=== PATIENT | male | born 1980 | race Asian ===

== ENCOUNTER 2018-06-25 20:23 | Emergency (ER) | payer OTHER, SELFPAY ==
[2018-06-25 20:28] VITALS: BP 125/79; PULSE 80; RESP 14; TEMP 36.4; O2SAT 100
[2018-06-25 22:00] VITALS: BP 129/74; PULSE 94; RESP 16; O2SAT 100
[2018-06-25 23:07] VITALS: BP 117/73; PULSE 92; RESP 17; O2SAT 100
[2018-06-26] VITALS: BP 119/66; PULSE 93; RESP 21; O2SAT 100
--- NOTE | 2018-06-26 00:23 | ED_ITS ---
HPI - Extremity Problem General Chief complaint: Extremity Problem,Nontraumatic Stated complaint: CHEST PAIN NUMBNESS OF LEFT ARM Time Seen by Provider: 06/26/18 00:23 Source: patient Mode of arrival: ambulatory Limitations: no limitations History of Present Illness HPI Narrative: The patient complains of left upper lateral chest pain for 2 days. He has increased discomfort with breathing, and moving. Pain resolved with rest. The pain does not radiate to his back or shoulder. 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 He can remember no trauma. He has no cardiac problems. He has no respiratory problems. He has no difficulty breathing. He was seen at a different, nearby, ER about 4 days ago and started on cyclobenzaprine for lumbar spasm. He has no back pain now. Related Data Home Medications Medication Instructions Recorded Confirmed cyclobenzaprine 10 mg PO TID PRN 06/25/18 06/25/18 Allergies Allergy/AdvReac Type Severity Reaction Status Date / Time No Known Drug Allergies Allergy Verified 06/25/18 20:34 Review of Systems Review of Systems ROS Unobtainable: All systems reviewed & are unremarkable except as noted in HPI and below Constitutional Denies fever(s), Denies lethargy and Denies weakness ENT Ears, Nose, Mouth, and Throat: Denies change in voice Cardiovascular Reports chest pain, Denies diaphoresis, Denies rapid heart rate, Denies pedal edema, Denies lightheadedness, Denies palpitations, Denies dyspnea, Denies dyspnea on exertion and Denies orthopnea Respiratory Denies cough, Denies hemoptysis, Denies pain with cough, Denies dyspnea, Denies dyspnea on exertion and Denies wheezing Gastrointestinal Gastrointestinal: Denies abdominal pain, Denies nausea and Denies vomiting Musculoskeletal Comments: No lower extremity edema. Integumentary/Breasts Denies rash Neurologic Denies weakness Endocrine Denies palpitations Allergic/Immunologic Denies wheezing [facility] Medical History (Updated 06/26/18 @ 00:37 by Deep Huertas MD) No active medical problems (Acute) Surgical History (Updated 06/26/18 @ 00:33 by Deep Huertas MD) No pertinent past surgical history (Acute) Social History Smoking Status: Current every day smoker Social History Smoking Status: Current every day smoker Exam Initial Vital Signs Initial Vital Signs: Vital Signs Temperature 97.6 F 06/25/18 20:28 Pulse Rate 80 06/25/18 20:28 Respiratory Rate 14 06/25/18 20:28 Blood Pressure 125/79 06/25/18 20:28 Pulse Oximetry 100 06/25/18 20:28 Const General: cooperative and well developed Nutritional Appearance: well nourished Orientation: alert, awake, oriented x3 and not confused Neck Neck: normal visual inspection, trachea midline and No JVD Lymphatic: No lymphedema Chest Chest: No crepitus and tenderness (Left pectoralis major muscle) Resp Effort & Inspection: normal respiratory effort, able to speak in complete sentences, no respiratory distress and no use of accessory muscles Auscultation: clear to auscultation bilaterally, no rales, no rhonchi and no wheezes Cardio Rate: regular rate Rhythm: regular rhythm Heart Sounds: no click, no gallops, no murmurs and no rubs Pulses: normal peripheral pulses GI Palpation: soft and No tender Back/Spine/Pelvis Back: normal to inspection Cervical Spine: normal cervical lordosis, cervical ROM normal and No cervical spasm Thoracic/Lumbar Spine: thoracic and lumbar spine normal to inspection and No thoracic spinal tenderness Skin General: no rashes or lesions noted Neuro General: alert, oriented x3, gait normal and no focal motor deficits Speech: speech normal Extrem General: full ROM and no clubbing, cyanosis or edema Course Course Narrative: The patient was started on ibuprofen for a left chest wall muscle strain. He is advised used Advil OTC, recheck with his doctor in 1 week if not improved. Vital Signs - 8 hr 06/25/18 20:28 06/25/18 22:00 06/25/18 23:07 Temperature 97.6 F Pulse Rate 80 94 H 92 H Respiratory Rate 14 16 17 Blood Pressure 125/79 Blood Pressure [Right Arm] 129/74 117/73 Pulse Oximetry 100 100 100 06/26/18 00:00 Temperature Pulse Rate 93 H Respiratory Rate 21 Blood Pressure Blood Pressure [Right Arm] 119/66 Pulse Oximetry 100 MDM - Extremity (Nontraumatic) ECG Data Attestation EKG: I personally reviewed and interpreted this ECG as follows: (Normal sinus rhythm rate 88 beats per minute. normal intervals. No ectopy. No acute ST T wave changes.) Discharge Plan Departure Patient Disposition: Home Clinical Impression: Chest wall muscle strain Qualifiers: Encounter type: initial encounter Qualified Code(s): S29.011A - Strain of muscle and tendon of front wall of thorax, initial encounter Instructions: DI for Muscle Strain Activity Restrictions/Additional Instructions: Advil 3 tablets every 6 hours as needed for pain. Recheck with her doctor in 1 week if not improved. Return to the ER if obviously worse. Prescriptions: No Action cyclobenzaprine 10 mg tablet 10 mg PO TID PRN (Reason: Back Pain) RF: 0
[2018-06-26] MEDS: IBUPROFEN 400 MG TABLET PO (00:41)
[2018-06-26 00:46] VITALS: BP 131/74; PULSE 97; RESP 18; O2SAT 100
== END 2018-06-26 00:47 | disposition home or self-care (01) ==
PROVIDERS: Emergency Provider Emergency Medicine
DX: S29.011A Strain of muscle and tendon of front wall of thorax, initial encounter (principal); R20.0 Anesthesia of skin; R07.89 Other chest pain
CPT/HCPCS: 93005; 93010; 99283

== ENCOUNTER 2018-07-26 03:20 | Emergency (ER) | payer OTHER, SELFPAY ==
[2018-07-26 03:31] VITALS: BP 141/97; PULSE 81; RESP 14; TEMP 37.2; O2SAT 96; BMI 29.9
[2018-07-26] MEDS: TET,DIPH,PERTUSS(ACELL),VAC/PF 0.5 ML SYRINGE IM (03:57)
--- NOTE | 2018-07-26 04:16 | ED.WOUNDLAC ---
HPI - Wound/Laceration General Chief Complaint: Wound/Laceration Stated Complaint: cut finger Time Seen by Provider: 07/26/18 04:16 Source: patient Mode of arrival: ambulatory Limitations: no limitations History of Present Illness HPI narrative: The patient lacerated his right thumb at work tonight. 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 He is dropping the left that helps moved meet at the work site. His right thumb was caught on a machine as a moved. He sustained a laceration to the tip of the right index finger. Initial active bleeding has ceased. He has no restriction of motion of the thumb. There are no other injuries. He is right-hand dominant. His last tetanus is unknown. Related Data Home Medications Medication Instructions Recorded Confirmed cyclobenzaprine 10 mg PO TID PRN 06/25/18 06/25/18 Allergies Allergy/AdvReac Type Severity Reaction Status Date / Time No Known Drug Allergies Allergy Verified 06/25/18 20:34 Review of Systems Constitutional Denies fever(s) and Denies weakness Comments: Generally good health. Musculoskeletal Reports as per HPI and Denies numbness Comments: Right thumb laceration Integumentary/Breasts Denies pruritus, Denies erythema, Denies rash and Denies wounds Neurologic Denies numbness and Denies weakness PFSH Medical History No active medical problems (Acute) Surgical History No pertinent past surgical history (Acute) Social History Smoking Status: Former smoker Social History Smoking Status: Former smoker Exam Initial Vital Signs Initial Vital Signs: Vital Signs Temperature 98.9 F 07/26/18 03:31 Pulse Rate 81 07/26/18 03:31 Respiratory Rate 14 07/26/18 03:31 Blood Pressure 141/97 H 07/26/18 03:31 Pulse Oximetry 96 07/26/18 03:31 Const General: cooperative and well developed Nutritional Appearance: well nourished Orientation: alert, awake and oriented x3 Skin General: no rashes or lesions noted, No jaundice and No petechiae Neuro Motor: muscle tone normal throughout Sensory Exam: no sensory deficits noted Extrem Other: Linear 0.5 cm laceration at the tip of the right thumb, on the medial side. There is no injury to the nail bed. The laceration is shallow, wound edges are well approximated. The finger is neurovascular intact. Course Course Narrative: The right thumb was cleansed and dressed by the patient's nurse, no closure was necessary. Tetanus was updated. Orders Ordered: Discontinued Medications Diphtheria/Tetanus/Acell Pertussis (Adacel) 0.5 ml IM .ONCE ONE Stop: 07/26/18 03:56 Last Admin: 07/26/18 03:57 Dose: 0.5 ml Vital Signs - 8 hr 07/26/18 03:31 Temperature 98.9 F Pulse Rate 81 Respiratory Rate 14 Blood Pressure 141/97 H Pulse Oximetry 96 Discharge Plan Departure Patient Disposition: Home Clinical Impression: Laceration of right thumb Qualifiers: Encounter type: initial encounter Damage to nail status: without damage Foreign body presence: without foreign body Qualified Code(s): S61.011A - Laceration without foreign body of right thumb without damage to nail, initial encounter Instructions: DI for Avulsion Laceration (Not Requiring Sutures) Activity Restrictions/Additional Instructions: Keep the bandage in place for about 2 days. After the 1st bandage comes off, leave the wound uncovered at home, but cover at work until the wound is obviously sealed. Return here as needed. Prescriptions: No Action cyclobenzaprine 10 mg tablet 10 mg PO TID PRN (Reason: Back Pain) RF: 0
== END 2018-07-26 04:50 | disposition home or self-care (01) ==
PROVIDERS: Emergency Provider Emergency Medicine
DX: S61.011A Laceration without foreign body of right thumb without damage to nail, initial encounter (principal); Y99.0 Civilian activity done for income or pay; Z23 Encounter for immunization
CPT/HCPCS: 90471; 99283; 90715